=== PATIENT | male | born 1995 | race Caucasian/White ===

== ENCOUNTER 2020-12-15 11:24 | Day surgery (SDC) | payer BC ==
--- NOTE | 2020-12-15 09:14 | HP ---
DATE OF SURGERY: 12/15/2020 HISTORY OF PRESENT ILLNESS: The patient is a 25 year-old who had some pain and swelling. He had several pits in the pilonidal area consistent with pilonidal cyst disease. He desires definitive treatment. PAST MEDICAL HISTORY: Asthma. Seasonal allergies. PAST SURGICAL HISTORY: He denied any prior surgery. MEDICATIONS: Kim. ALLERGIES: NKDA. APPLE. BANANA. CELERY. MOLD. POLLEN EXTRACTS. FAMILY HISTORY: Parkinson's and lymphoma. SOCIAL HISTORY: No smoking. He does drink some alcohol occasionally. REVIEW OF SYSTEMS: Fourteen systems reviewed. No chest pain or palpitations. Other systems negative or noncontributory as above and per preadmission questionnaire. PHYSICAL EXAMINATION: GENERAL: No acute distress. HEENT: Sclerae nonicteric. NECK: No JVD. CHEST: Equal excursion, nonlabored breathing. CVS: Regular rate and rhythm. ABDOMEN: Soft. No peritoneal signs. SKIN: Pilonidal area he has several pits consistent with pilonidal cyst disease. EXTREMITIES: No significant edema. NEURO: Alert, moving extremities symmetrically. PSYCH: Appropriate mood and affect. IMPRESSION: Pilonidal cyst disease. I feel the patient will benefit from definitive excision. He was shown the risk sheet, explained the procedure in detail including but not limited to bleeding or infection. May need to leave the wound open and require packing with 90% heal in 12 weeks, healing by secondary 5% take longer, 5% fail to heal and need other attempts at other procedures or referral. Possibility if it is clean enough will be closed with flap. Mild risk of bleeding or infection, risk of wound dehiscence, possibly scar requiring packing. Importance of keeping all hair away from the area during healing phase postoperatively. General risk of importance of minimizing aggressive activity or require packing down to bottom of the wound. General risk of anesthesia, deep venous thrombosis, pulmonary embolism, or pneumonia. Risk of aches and pain possible jail or chronic in nature. Overall 20% risk of recurrence. Importance of supervisor intermediates keeping the hair away from the area. He understands and agrees to the planned procedure, will proceed with excisional biopsy of recurrent pilonidal cyst disease with flap closure and possibly packing as an outpatient.
[~2020-12-15 11:24] MED LIST: ANUSOL-HC 2.5% CREAM 30 GM TOP ONE; Lactated Ringers 1,000 ML IV ONE; Sensorcaine 0.25% 10 ML ONE
[2020-12-15] MEDS ORDERED: Lactated Ringers 1,000 ML IV ONE (11:43)
[2020-12-15] MEDS ORDERED: CEFAZOLIN 2 GM-D5W BAG** 2 GM/50 ML ML IV ONE (11:44)
[2020-12-15] MEDS ORDERED: CEFAZOLIN 2 GM-D5W BAG** 2 GM/50 ML ML IV SCH (12:00)
[2020-12-15] MEDS ORDERED: Lactated Ringers 1,000 ML IV SCH (12:00)
[2020-12-15] MEDS: Versed 2 MG/2 ML Injection IV PRN ×2 (12:43→13:04)
[2020-12-15] MEDS ORDERED: DIPRIVAN 200 MG/20 ML IV ONE (13:52)
[2020-12-15] MEDS ORDERED: SUBLIMAZE 250 MCG/5 ML ONE (13:52)
[2020-12-15] MEDS ORDERED: Versed 2 MG/2 ML Injection ONE (13:52)
[2020-12-15] MEDS ORDERED: Zemuron 100 MG/10 ML ONE (13:52)
[2020-12-15] MEDS ORDERED: TORAdol 30 mg Injection ONE (14:24)
[2020-12-15] MEDS ORDERED: BRIDION 200MG/2ML IV ONE (14:25)
--- NOTE | 2020-12-15 15:39 | OP ---
SURGERY DATE/TIME: 12/15/2020 1350 PREOPERATIVE DIAGNOSIS: Persistent pilonidal cyst disease. POSTOPERATIVE DIAGNOSIS: Persistent pilonidal cyst disease. PROCEDURE: Excisional biopsy pilonidal cyst disease (7 x 3 x 3 cm) with advancement flap closure. SURGEON: Dr. Benedict Brady. ANESTHESIA: General. 0.25% lidocaine local. ESTIMATED BLOOD LOSS: Minimal. INDICATIONS: As noted above. Risks and benefits explained in detail and not limited to and consent obtained. DESCRIPTION OF PROCEDURE AND FINDINGS: The patient is taken to the operating room. General anesthesia induced. Placed in prone position, appropriate padding per anesthesia and OR staff. The pilonidal area was prepped and draped in the usual sterile fashion. After official time out and no disagreement with planned procedure, just staying right outside the multiple pits in the midline dissection was carried down deep to the underlying fascia. It should be noted that the very top most pits extended quite cephalad requiring extending the incision in this direction. This stayed around the inflammatory granulation cyst site excising all of this tissue and passing it off for pathology. Hemostasis controlled with some pinpoint cautery. Good hemostasis noted. Some small residual hairs around the edges were carefully plucked with hemostat. It was felt if this area stays clean enough it would be worthwhile to try and do advancement flaps back to the midline. The fascia was undermined on either side. We then carefully advanced back to the midline with some interrupted 3-0 Vicryl closing the deep subcu portion of flap and the superficial subcu portion of the flap in interrupted fashion. Good hemostasis noted. The skin closed with 4-0 Vicryl in running subcuticular fashion, some interrupted 3-0 Prolene vertical mattress fashion was used to reinforce the area given location. Some Dermabond was used to coat the wound. Sterile dressing applied. The patient tolerated the procedure well. There were no immediate complications. Findings were discussed with his mother out in the waiting area.
[2020-12-15 15:55] VITALS: O2SAT 100
[2020-12-15] MEDS ORDERED: NORCO 5/325 MG PO PRN (15:55)
[2020-12-15 16:32] VITALS: BP 143/96; PULSE 57
== END 2020-12-15 16:45 | disposition home or self-care (01) ==
LOC: EDBD → SDC 11:24
PROVIDERS: ATTEND Surgery
DX: L05.01 Pilonidal cyst with abscess (principal)
CPT/HCPCS: J0690; J1885; J2250; J2704; J3010; A9270-GY